=== PATIENT | female | born 1950 | race American Indian/Alaskan Native ===

== ENCOUNTER 2017-07-21 09:59 | Outpatient (CLI) | payer MEDICARE ==
--- NOTE | 2017-07-21 12:32 | Mammography Report ---
BILATERAL DIGITAL SCREENING MAMMOGRAM with CAD: 07/21/17 09:59:00 CLINICAL: Routine screening. COMPARISON: 10/02/15 FINDINGS: The breasts are heterogeneously dense, which may obscure small masses.No mass, architectural distortion or suspicious calcifications. IMPRESSION: No mammographic evidence of malignancy. BI-RADS CATEGORY: 1 -- Negative RECOMMENDATION: Routine mammographic screening in one year. COMMENT: Patient follow-up letters are generated by our [employer] application.
== END 2017-07-21 10:00 | disposition home or self-care (01) ==
LOC: MAMMO 09:59
PROVIDERS: ATTEND Internal Medicine Infectious Disease
DX: Z12.31 Encounter for screening mammogram for malignant neoplasm of breast (principal)
CPT/HCPCS: 77067

== ENCOUNTER 2020-06-11 10:47 | Emergency (ER) | payer MEDICARE ==
[2020-06-11 11:01] VITALS: BP 146/70
[2020-06-11 11:29] LABS: Bilirubin,Urine NEG (Negative); Blood,Urine NEG (Negative); Color,Urine Yellow (Yellow); Mucus,Urine FEW /HPF; Urobilinogen,Urine < 2.0 mg/dL (<2.0)
--- NOTE | 2020-06-11 11:54 | Emergency Department Report ---
ED Abdominal Pain HPI - General Chief Complaint: Abdominal Pain Stated Complaint: RT SIDE PAIN Time Seen by Provider: 06/11/20 11:12 Source: patient Mode of arrival: Ambulatory Limitations: No Limitations - History of Present Illness Initial Comments: Patient is a 69-year-old female presents emergency room complaints of right upper quadrant abdominal pain that began 2 weeks ago. She states initially she thought it was gas pain and has been taking [id number]-[id number] medications without much relief. She denies any fever, nausea, vomiting, diarrhea, hematochezia, melena, hematemesis, urinary symptoms. She states that she had a normal bowel movement this morning. She states that she has been able to tolerate p.o. intake. Patient has a past medical history of HIV and states that she is on her antivirals and reports that she is undetectable. She states that she does see her infectious disease doctor regularly. She denies any medication allergies. - Related Data Previous Rx's Medication Instructions Recorded Last Taken Type Clindamycin [Clindamycin CAP] 300 mg PO Q8H #20 cap 11/07/15 Unknown Rx Famotidine [Pepcid] 40 mg PO QHS #30 tablet 06/11/20 Unknown Rx Ondansetron [Zofran Odt] 4 mg PO Q8HR PRN #10 tab.rapdis 06/11/20 Unknown Rx Simethicone [Gas-X] 62.5 mg PO Q8HR PRN #1 strip 06/11/20 Unknown Rx traMADoL [Ultram 50 MG tab] 50 mg PO Q6HR PRN #10 tablet 06/11/20 Unknown Rx Allergies Allergy/AdvReac Type Severity Reaction Status Date / Time No Known Allergies Allergy Verified 06/11/20 10:56 ED Review of Systems ROS: Stated complaint: RT SIDE PAIN Other details as noted in HPI Comment: All other systems reviewed and negative ED Past Medical Hx - Past Medical History Additional medical history: hiv - Surgical History Additional Surgical History: hysto - Social History Smoking Status: Never Smoker Substance Use Type: None - Medications Home Medications: Home Medications Medication Instructions Recorded Confirmed Last Taken Type Clindamycin [Clindamycin CAP] 300 mg PO Q8H #20 cap 11/07/15 Unknown Rx Famotidine [Pepcid] 40 mg PO QHS #30 tablet 06/11/20 Unknown Rx Ondansetron [Zofran Odt] 4 mg PO Q8HR PRN #10 tab.rapdis 06/11/20 Unknown Rx Simethicone [Gas-X] 62.5 mg PO Q8HR PRN #1 strip 06/11/20 Unknown Rx traMADoL [Ultram 50 MG tab] 50 mg PO Q6HR PRN #10 tablet 06/11/20 Unknown Rx ED Physical Exam - General Limitations: No Limitations General appearance: alert, in no apparent distress - Head Head exam: Present: atraumatic, normocephalic - Eye Eye exam: Present: normal appearance - ENT ENT exam: Present: mucous membranes moist - Respiratory Respiratory exam: Present: normal lung sounds bilaterally. Absent: respiratory distress, wheezes, rales, rhonchi, stridor, chest wall tenderness, accessory muscle use, decreased breath sounds, prolonged expiratory - Cardiovascular Cardiovascular Exam: Present: regular rate, normal rhythm, normal heart sounds. Absent: systolic murmur, diastolic murmur, rubs, gallop - GI/Abdominal GI/Abdominal exam: Present: soft, tenderness (RUQ), normal bowel sounds. Absent: distended, guarding, rebound, rigid - Neurological Exam Neurological exam: Present: alert, oriented X3 - Psychiatric Psychiatric exam: Present: normal affect, normal mood - Skin Skin exam: Present: warm, dry, intact ED Course Vital Signs 06/11/20 06/11/20 11:00 14:02 Temperature 99.7 F H Pulse Rate 83 Respiratory 20 16 Rate Blood Pressure 146/70 O2 Sat by Pulse 97 Oximetry ED Medical Decision Making - Lab Data Result diagrams: 06/11/20 11:46 06/11/20 11:46 - Radiology Data Radiology results: report reviewed Ordering Physician: CHRISTOPHER LU Date of Service: 06/11/20 Procedure(s): US abdomen limited Accession Number(s): [id number] cc: CHRISTOPHER LU LIMITED RUQ ABDOMINAL ULTRASOUND INDICATION: acute pain. COMPARISON: No relevant prior imaging study available. FINDINGS: Pancreas: Visualized portions show no significant abnormality. Abdominal Aorta: No significant abnormality. IVC: No significant abnormality. Liver: The liver measures 14.9 cm in length. No significant abnormality. Normal hepatopedal blood flow in the main portal vein. Gallbladder: There is a 1 cm stone in the gallbladder without wall thickening or distention. Bile ducts: No significant abnormality. Common bile duct measures 2.7 mm. Right kidney: No significant abnormality visualized.. Free fluid: None. Additional Findings: None. IMPRESSION: 1. Cholelithiasis without evidence of acute cholecystitis. Signer Name: Alex Arellano MD Signed: 06/11/2020 1:31 PM Workstation Name: [id number] Transcribed By: KAYLEIGH Dictated By: Alex Arellano MD Electronically Authenticated By: Alex Arellano MD Signed Date/Time: 06/11/20 1331 DD/ 1330 TD/TT: Ordering Physician: RICARDO AREVALO Date of Service: 06/11/20 Procedure(s): XR chest 1V ap Accession Number(s): [id number] cc: RICARDO AREVALO Fluoro Time In Minutes: CHEST 1 VIEW INDICATION: chest pain. COMPARISON: None. FINDINGS: Support devices: None. Heart: Upper limits of normal. Lungs/Pleura: No acute pulmonary or pleural findings. IMPRESSION: 1. No acute findings. Signer Name: Damián Cameron MD Signed: 06/11/2020 2:05 PM Workstation Name: [id number] Transcribed By: SW Dictated By: Damián Cameron MD Electronically Authenticated By: Damián Cameron MD Signed Date/Time: 06/11/20 1405 DD/ 1404 TD/TT: - Medical Decision Making Patient is a 69-year-old female presents emergency room complaints of right upper quadrant abdominal pain that began 2 weeks ago. She states initially she thought it was gas pain and has been taking [id number]-avo-itnjciv medications without much relief. She denies any fever, nausea, vomiting, diarrhea, hematochezia, melena, hematemesis, urinary symptoms. She states that she had a normal bowel movement this morning. She states that she has been able to tolerate p.o. intake. Patient has a past medical history of HIV and states that she is on her antivirals and reports that she is undetectable. She states that she does see her infectious disease doctor regularly. She denies any medication allergies. VSS. Patient has right upper quadrant tenderness on exam, no guarding, no rebound, no rigidity, normal bowel sounds, no peritoneal signs, negative Lee sign. Labs are normal. UA is within normal limits. Abdominal ultrasound: 1. Cholelithiasis without evidence of acute cholecystitis. CXR: 1. No acute findings. Patient given medications in the emergency department and symptoms significantly improved and she was feeling much better and ready to go home. Patient was able to tolerate p.o. intake without difficulty. Discussed all findings with patient and the importance of follow-up. Patient evaluated at bedside by Dr. Parish Lazar who agrees with treatment plan. Patient given prescription for Pepcid, Gas-X, tramadol, Zofran. Advised patient Please take medication as prescribed. Do not drive or operate machinery while taking severe pain medication. Increase your water intake. Please avoid fatty foods. Follow-up with a GI doctor. Follow-up with a general surgeon. Follow-up with your primary care doctor. Return to emergency room immediately for any new or worsening symptoms. - Differential Diagnosis Cholelithiasis, cholecystitis, PUD, GERD, gas pain, constipation, PNA Critical care attestation.: If time is entered above; I have spent that time in minutes in the direct care of this critically ill patient, excluding procedure time. ED Disposition Clinical Impression: Abdominal pain Qualifiers: Abdominal location: right upper quadrant Qualified Code(s): R10.11 - Right upper quadrant pain Cholelithiasis Qualifiers: Cholelithiasis location: gallbladder Cholecystitis presence: without cholecystitis Biliary obstruction: without biliary obstruction Qualified Cod e(s): K80.20 - Calculus of gallbladder without cholecystitis without obstruction Disposition: DC- TO HOME OR SELFCARE Is pt being admited?: No Does the pt Need Aspirin: No Condition: Stable Instructions: Cholelithiasis, Abdominal Pain (ED) Additional Instructions: Please take medication as prescribed. Do not drive or operate machinery while taking severe pain medication. Increase your water intake. Please avoid fatty foods. Follow-up with a GI doctor. Follow-up with a general surgeon. Follow- up with your primary care doctor. Return to emergency room immediately for any new or worsening symptoms. Prescriptions: Famotidine [Pepcid] 40 mg PO QHS #30 tablet Simethicone [Gas-X] 62.5 mg PO Q8HR PRN #1 strip PRN Reason: gas traMADoL [Ultram 50 MG tab] 50 mg PO Q6HR PRN #10 tablet PRN Reason: Pain , Severe (7-10) Ondansetron [Zofran Odt] 4 mg PO Q8HR PRN #10 tab.rapdis PRN Reason: Nausea And Vomiting Referrals: NAVIN ESPARZA MD [Primary Care Provider] - 2-3 Days NERI MAXWELL DO [Staff Physician] - 2-3 Days [facility] [Provider Group] - 2-3 Days Time of Disposition: 14:55 Print Language: ESTONIAN
[2020-06-11 12:33] LABS: Basophils % (Auto) 0.5 % (0.0-1.8); Eosinophils # (Auto) 0.1 K/mm3 (0.0-0.4); Eosinophils % (Auto) 2.2 % (0.0-4.3); Hematocrit 36.3 % (30.3-42.9); Hemoglobin 12.3 gm/dl (10.1-14.3); Lymphocytes # (Auto) 1.5 K/mm3 (1.2-5.4); Lymphocytes % (Auto) 30.4 % (13.4-35.0); Mean Corpuscular HGB Conc 34 % (30-34); Mean Corpuscular Volume 92 fl (79-97); Monocytes # (Auto) 0.2 K/mm3 (0.0-0.8); Monocytes % (Auto) 3.5 % (0.0-7.3); Platelet Count 261 K/mm3 (140-440); Red Blood Count 3.93 M/mm3 (3.65-5.03); Red Cell Distribution Width 16.6 % (13.2-15.2)
[2020-06-11 12:55] LABS: Alanine Aminotransferase 10 units/L (7-56); Albumin 3.8 g/dL (3.9-5); BUN/Creatinine Ratio 16; Blood Urea Nitrogen 13 mg/dL (7-17); Calcium 8.7 mg/dL (8.4-10.2); Hemolysis Index 3
[2020-06-11] MEDS ORDERED: PANTOPRAZOLE 40 MG INJ IV ONE (13:29)
[2020-06-11] MEDS ORDERED: MORPHINE 2 MG/1 ML INJ IV ONE (13:29)
[2020-06-11] MEDS ORDERED: ONDANSETRON 4 MG/2 ML INJ IV ONE (13:29)
[2020-06-11] MEDS ORDERED: SODIUM CHLORIDE 0.9% 1000 ML 1,000 ML IV ONE (13:29)
[2020-06-11] MEDS ORDERED: ALUM-MAG HYDROXIDE-SIMETHICONE 200-200-20MG/5ML ORAL LIQD 30 ML PO ONE (13:29)
--- NOTE | 2020-06-11 13:36 | Ultrasound Report ---
LIMITED RUQ ABDOMINAL ULTRASOUND INDICATION: acute pain. COMPARISON: No relevant prior imaging study available. FINDINGS: Pancreas: Visualized portions show no significant abnormality. Abdominal Aorta: No significant abnormality. IVC: No significant abnormality. Liver: The liver measures 14.9 cm in length. No significant abnormality. Normal hepatopedal blood ivette w in the main portal vein. Gallbladder: There is a 1 cm stone in the gallbladder without wall thickening or distention. Bile ducts: No significant abnormality. Common bile duct measures 2.7 mm. Right kidney: No significant abnormality visualized.. Free fluid: None. Additional Findings: None. IMPRESSION: 1. Cholelithiasis without evidence of acute cholecystitis. Signer Name: Alex Arellano MD Signed: 06/11/2020 1:31 PM Workstation Name: [id number]
--- NOTE | 2020-06-11 14:09 | XRay Report ---
CHEST 1 VIEW INDICATION: chest pain. COMPARISON: None. FINDINGS: Support devices: None. Heart: Upper limits of normal. Lungs/Pleura: No acute pulmonary or pleural findings. IMPRESSION: 1. No acute findings. Signer Name: Damián Cameron MD Signed: 06/11/2020 2:05 PM Workstation Name: [id number]
== END 2020-06-11 15:00 | disposition home or self-care (01) ==
LOC: ED 10:47
DX: K80.20 Calculus of gallbladder without cholecystitis without obstruction (principal); R10.11 Right upper quadrant pain; Z98.890 Other specified postprocedural states; Z79.899 Other long term (current) drug therapy
CPT/HCPCS: 36415; 71045; 76705; 80053; 81001; 83690; 85025; 96361; 96374; 96375; 99284; J2270; J2405; J7030

== ENCOUNTER 2020-06-15 03:58 | Emergency (ER) | payer MEDICARE ==
[2020-06-15 04:05] VITALS: BP 149/74
--- NOTE | 2020-06-15 04:22 | Emergency Department Report ---
Blank Doc - Documentation Documentation: 69-year-old female that presents with abdominal pain with nausea. 1- This initial assessment/diagnostic orders/clinical plan/ treatment(s) is/are subject to change based on pt's health status, clinical progression and re- assessment by fellow clinical providers in the ED. Further treatment and workup at subsequent clinical provers discretion. Patient/guardians urged not to elope from ED as their condition may be serious if not clinically assessed and managed. 2-labs 3-UA
[2020-06-15 05:39] LABS: Basophils % (Auto) 0.7 % (0.0-1.8); Eosinophils # (Auto) 0.1 K/mm3 (0.0-0.4); Eosinophils % (Auto) 2.2 % (0.0-4.3); Hematocrit 34.1 % (30.3-42.9); Hemoglobin 11.6 gm/dl (10.1-14.3); Lymphocytes # (Auto) 1.7 K/mm3 (1.2-5.4); Lymphocytes % (Auto) 31.4 % (13.4-35.0); Mean Corpuscular HGB Conc 34 % (30-34); Mean Corpuscular Volume 92 fl (79-97); Monocytes # (Auto) 0.3 K/mm3 (0.0-0.8); Monocytes % (Auto) 5.8 % (0.0-7.3); Platelet Count 284 K/mm3 (140-440); Red Blood Count 3.71 M/mm3 (3.65-5.03); Red Cell Distribution Width 16.5 % (13.2-15.2)
[2020-06-15 06:02] LABS: Bilirubin,Urine NEG (Negative); Blood,Urine NEG (Negative); Color,Urine Yellow (Yellow); Mucus,Urine FEW /HPF; Urobilinogen,Urine < 2.0 mg/dL (<2.0); WBC,Urine < 1.0 /HPF (0.0-6.0)
[2020-06-15 06:03] LABS: Alanine Aminotransferase 13 units/L (7-56); Albumin 3.6 g/dL (3.9-5); BUN/Creatinine Ratio 14; Blood Urea Nitrogen 13 mg/dL (7-17); Calcium 8.9 mg/dL (8.4-10.2); Hemolysis Index 2
== END 2020-06-15 04:30 ==
LOC: ED 03:58
DX: R10.9 Unspecified abdominal pain (principal); Z53.21 Procedure and treatment not carried out due to patient leaving prior to being seen by health care provider
CPT/HCPCS: 36415; 80053; 81001; 83690; 85025